=== PATIENT | female | born 1965 | race Caucasian/White ===

== ENCOUNTER 2022-11-28 04:36 | Emergency (ER) | payer SELFPAY ==
[2022-11-28] MEDS ORDERED: IBUPROFEN 400 MG TAB ONE (05:28)
[2022-11-28 06:14] LABS: Absolute Lymphocytes (CBC) 1.4 K/uL (0.7-4.9); Hematocrit 25.2 % (36.0-45.0); Lymphocytes % 10.3 % (15.3-44.8); MCV 84.3 fL (80-100); MPV 6.9 fL (7.6-11.3); Platelets 575 thou/uL (152-406); RBC Red Blood Cell Count 2.99 M/uL (3.86-4.86)
[2022-11-28] MEDS ORDERED: APIXABAN 5 MG TABLET ONE (06:21)
[2022-11-28 06:27] LABS: Protime INR 1.09
--- NOTE | 2022-11-28 06:27 | ER ---
Nurse's Notes [facility] Name: Rebeka Rogers Age: 56 yrs Sex: Female : 1965 Arrival Date: 11/28/2022 Time: 04:36 Bed 8 Private MD: Diagnosis: Phlebitis and thrombophlebitis of unspecified site Presentation: 11/28 04:43 Chief complaint: Patient states: right upper arm swelling, redness with pain of 5,onset pf1 Saturday. Patient stated was treated at [facility] with IV antibiotics for intestinal infection on Saturday, no issue with IV at that time. Patient stated is currently on Cefdinir and Flagyl for the infection. Patient stated took Lisinopril 5mg at 0400. 04:43 Coronavirus screen: Vaccine status: Patient reports receiving the 2nd dose of the covid pf1 vaccine. [facility] Client denies travel out of the [place] in the last 14 days. At this time, the client does not indicate any symptoms associated with coronavirus-19. Ebola Screen: Patient negative for fever greater than or equal to 101.5 degrees Fahrenheit, and additional compatible Ebola Virus Disease symptoms. Initial Sepsis Screen: Does the patient meet any 2 criteria? No. Patient's initial sepsis screen is negative. Does the patient have a suspected source of infection? No. Patient's initial sepsis screen is negative. Risk Assessment: Do you want to hurt yourself or someone else? Patient reports no desire to harm self or others. 04:43 Method Of Arrival: Ambulatory pf1 04:43 Acuity: DEEPTI 3 pf1 Triage Assessment: 05:00 General: Appears in no apparent distress. comfortable, Behavior is cooperative, bp appropriate for age, anxious. Pain: Complains of pain in right bicep. EENT: No deficits noted. Neuro: No deficits noted. Cardiovascular: No deficits noted. Musculoskeletal: Swelling present in right bicep. Historical: - Allergies: 05:04 No Known Allergies; pf1 - PMHx: 05:04 Hypertensive disorder; Seizure; blood transfusion; intestinal infection; RA; pf1 - PSHx: 05:04 section; pf1 - Immunization history:: Adult Immunizations up to date, Client reports receiving the 2nd dose of the Covid vaccine, Last tetanus immunization: < 10 years ago Flu vaccine is not up to date. - Social history:: Smoking status: Patient denies any tobacco usage or history of. Patient/guardian denies using alcohol, street drugs. - Family history:: not pertinent. Screenin:00 [facility] ED Fall Risk Assessment (Adult) History of falling in the last 3 months, bp including since admission No falls in past 3 months (0 pts). Abuse screen: Denies threats or abuse. Denies injuries from another. Nutritional screening: No deficits noted. Tuberculosis screening: No symptoms or risk factors identified. Assessment: 05:00 General: SEE TRIAGE NOTE. bp 05:41 Reassessment: PER INITIAL READ, PT +DVT ON RUE. bp Vital Signs: 04:43 BP 159 / 92; Pulse 87; Resp 16; Temp 98.7; Pulse Ox 99% on R/A; Weight 72.57 kg; Height pf1 5 ft. 5 in. ; Pain 5/10; 05:41 BP 159 / 92; Pulse 84; Resp 16; Pulse Ox 99% ; bp 06:47 BP 150 / 90; Pulse 91; Resp 16; Pulse Ox 99% ; bp 04:43 Body Mass Index 26.63 (72.57 kg, 165.1 cm) pf1 04:43 Pain Scale: Adult pf1 ED Course: 04:38 Patient arrived in ED. mr 04:49 Gabino Garcia, RN is Primary Nurse. bp 04:50 Eliel Bearden MD is Attending Physician. ashkan 05:00 Arm band placed on. bp 05:00 Patient has correct armband on for positive identification. Bed in low position. Call bp light in reach. Side rails up X2. Adult w/ patient. 05:03 Triage completed. pf1 05:41 UPPER EXTREMITY VENOUS UNILATE In Process Unspecified. EDMS 06:27 Agueda Ashton MD is Referral Physician. ashkan 06:27 Boby Boyle MD is Referral Physician. ashkan 06:48 No provider procedures requiring assistance completed. IV discontinued, intact, bp bleeding controlled, No redness/swelling at site. Pressure dressing applied. Administered Medications: 05:20 Drug: Ibuprofen PO 600 mg PO once Route: PO; bp 05:39 Follow up: Response: No adverse reaction bp 06:13 Drug: Eliquis PO 10 mg PO once Route: PO; rv 06:48 Follow up: Response: No adverse reaction bp Medication: 05:00 VIS not applicable for this client. bp Outcome: 06:27 Discharge ordered by . ashkan 06:48 Discharged to home ambulatory, with family, bp 06:48 Condition: stable 06:48 Discharge instructions given to patient, Instructed on discharge instructions, follow up and referral plans. medication usage, Demonstrated understanding of instructions, follow-up care, medications, Prescriptions given X 2, 06:48 Patient left the ED. bp Signatures: Dispatcher [employer] EDMS Eliel Bearden MD MD cha Rivera Mallorie, Reg Reg mr Gabino Garcia, RN RN bp Luis A Fournier RN RN Fifi Khan RN RN pf1 Corrections: (The following items were deleted from the chart) 05:14 05:04 PSHx: RA; pf1 pf1 06:47 05:41 BP 150 / 9; Pulse 84bpm; Resp 16bpm; Pulse Ox 99%; bp bp
--- NOTE | 2022-11-28 06:27 | EDPHYS ---
Physician Documentation [facility] Name: Rebeka Rogers Age: 56 yrs Sex: Female : 1965 Arrival Date: 11/28/2022 Time: 04:36 Bed 8 Private MD: ASHLEIGH Physician Eliel Bearden HPI: 11/28 05:59 This 56 yrs old Female presents to ER via Ambulatory with complaints of Arm ashkan swelling. 05:59 The patient or guardian complains of pain, that is acute. The complaints affect the ashkan right antecubital area. Context: resulted from iv infliltration. Onset: The symptoms/episode began/occurred 2 day(s) ago. Treatment prior to arrival includes: no previous treatment, elevation of the extremity. Modifying factors: The symptoms are alleviated by remaining still, the symptoms are aggravated by movement, bending arm. Associated signs and symptoms: The patient has no apparent associated signs or symptoms. Severity of symptoms: At their worst the symptoms were mild, moderate, in the emergency department the symptoms are unchanged. The patient has not experienced similar symptoms in the past. Historical: - Allergies: 05:04 No Known Allergies; pf1 - PMHx: 05:04 Hypertensive disorder; Seizure; blood transfusion; intestinal infection; RA; pf1 - PSHx: 05:04 section; pf1 - Immunization history:: Adult Immunizations up to date, Client reports receiving the 2nd dose of the Covid vaccine, Last tetanus immunization: < 10 years ago Flu vaccine is not up to date. - Social history:: Smoking status: Patient denies any tobacco usage or history of. Patient/guardian denies using alcohol, street drugs. - Family history:: not pertinent. ROS: 05:59 Constitutional: Negative for fever, chills, and weight loss, Eyes: Negative for injury, ashkan pain, redness, and discharge, ENT: Negative for injury, pain, and discharge, Neck: Negative for injury, pain, and swelling, Cardiovascular: Negative for chest pain, palpitations, and edema, Respiratory: Negative for shortness of breath, cough, wheezing, and pleuritic chest pain, Abdomen/GI: Negative for abdominal pain, nausea, vomiting, diarrhea, and constipation, Back: Negative for injury and pain, : Negative for injury, bleeding, discharge, and swelling, Skin: Negative for injury, rash, and discoloration, Neuro: Negative for headache, weakness, numbness, tingling, and seizure, Psych: Negative for depression, anxiety, suicide ideation, homicidal ideation, and hallucinations, Allergy/Immunology: Negative for hives, rash, and allergies, Endocrine: Negative for neck swelling, polydipsia, polyuria, polyphagia, and marked weight changes, Hematologic/Lymphatic: Negative for swollen nodes, abnormal bleeding, and unusual bruising, 05:59 MS/extremity: Positive for pain, swelling, of the right arm, Exam: 05:59 Constitutional: This is a well developed, well nourished patient who is awake, alert, ashkan and in no acute distress. Head/Face: Normocephalic, atraumatic. Eyes: Pupils equal round and reactive to light, extra-ocular motions intact. Lids and lashes normal. Conjunctiva and sclera are non-icteric and not injected. Cornea within normal limits. Periorbital areas with no swelling, redness, or edema. ENT: Nares patent. No nasal discharge, no septal abnormalities noted. Tympanic membranes are normal and external auditory canals are clear. Oropharynx with no redness, swelling, or masses, exudates, or evidence of obstruction, uvula midline. Mucous membranes moist. Neck: Trachea midline, no thyromegaly or masses palpated, and no cervical lymphadenopathy. Supple, full range of motion without nuchal rigidity, or vertebral point tenderness. No Meningismus. Chest/axilla: Normal chest wall appearance and motion. Nontender with no deformity. No lesions are appreciated. Cardiovascular: Regular rate and rhythm with a normal S1 and S2. No gallops, murmurs, or rubs. Normal PMI, no JVD. No pulse deficits. Respiratory: Lungs have equal breath sounds bilaterally, clear to auscultation and percussion. No rales, rhonchi or wheezes noted. No increased work of breathing, no retractions or nasal flaring. Abdomen/GI: Soft, non-tender, with normal bowel sounds. No distension or tympany. No guarding or rebound. No evidence of tenderness throughout. Back: No spinal tenderness. No costovertebral tenderness. Full range of motion. Female : Normal external genitalia. Skin: Warm, dry with normal turgor. Normal color with no rashes, no lesions, and no evidence of cellulitis. Neuro: Awake and alert, GCS 15, oriented to person, place, time, and situation. Cranial nerves II-XII grossly intact. Motor strength 5/5 in all extremities. Sensory grossly intact. Cerebellar exam normal. Normal gait. Psych: Awake, alert, with orientation to person, place and time. Behavior, mood, and affect are within normal limits. 05:59 Musculoskeletal/extremity: ROM: limited active range of motion, limited passive range of motion, Circulation is intact in all extremities. Sensation intact. Compartment Syndrome exam of affected extremity: is normal. DVT Exam: negative Homans' sign noted on exam, no appreciated bluish discoloration, pain, swelling, tenderness, erythema, increased warmth, Vital Signs: 04:43 BP 159 / 92; Pulse 87; Resp 16; Temp 98.7; Pulse Ox 99% on R/A; Weight 72.57 kg; Height pf1 5 ft. 5 in. ; Pain 5/10; 05:41 BP 159 / 92; Pulse 84; Resp 16; Pulse Ox 99% ; bp 06:47 BP 150 / 90; Pulse 91; Resp 16; Pulse Ox 99% ; bp 04:43 Body Mass Index 26.63 (72.57 kg, 165.1 cm) pf1 04:43 Pain Scale: Adult pf1 MDM: 04:50 Patient medically screened. [facility] 05:59 Differential diagnosis: contusion, abrasion, tendonitis. Data reviewed: vital signs, [facility] nurses notes, lab test result(s), radiologic studies, doppler. Consideration of Admission/Observation Escalation of care including admission/observation considered. I considered the following discharge prescriptions or medication management in the emergency department Medications were administered in the Emergency Department. See MAR. Independent interpretation of the following test(s) in the Emergency Department Radiology Department Ultrasound: My interpretation is basillic vein dvt. Test considered but Not performed: EKG: no ekg. Historians other than the Patient: Daughter/Son: son , present. Care significantly affected by the following chronic conditions: Hypertension, seizure, intestinal infection. 11/28 05:46 Order name: CBC with Diff; Complete Time: 06:24 [facility] 11/28 05:46 Order name: Comprehensive Metabolic Panel [facility] 11/28 05:46 Order name: PT-INR [facility] 11/28 05:46 Order name: Test, Serum; Complete Time: 06:24 [facility] 11/28 05:41 Order name: UPPER EXTREMITY VENOUS UNILATE [facility] 11/28 05:06 Order name: Misc. Order: moist warm; Complete Time: 05:38 [facility] 11/28 05:42 Order name: IV Saline Lock; Complete Time: 06:07 rv Administered Medications: 05:20 Drug: Ibuprofen PO 600 mg PO once Route: PO; bp 05:39 Follow up: Response: No adverse reaction bp 06:13 Drug: Eliquis PO 10 mg PO once Route: PO; rv 06:48 Follow up: Response: No adverse reaction bp Disposition Summary: 11/28/22 06:27 Discharge Ordered Notes: Location: Home ashkan Problem: new ashkan Symptoms: have improved ashkan Condition: Stable ashkan Diagnosis - Phlebitis and thrombophlebitis of unspecified site ashkan Followup: ashkan - With: Private Physician - When: 2 - 3 days - Reason: Recheck today's complaints, Continuance of care, Re-evaluation by your physician Followup: ashkan - With: Agueda Ashton MD - When: 2 - 3 days - Reason: Recheck today's complaints, Re-evaluation by your physician Followup: ashkan - With: Boby Boyle MD - When: 2 - 3 days - Reason: Recheck today's complaints, Re-evaluation by your physician Discharge Instructions: - Discharge Summary Sheet ashkan - Phlebitis ashkan - Phlebitis, Edfu-by-Jptr ashkan - Venous Thromboembolism Prevention ashkan - Thrombophlebitis [facility] Forms: - Medication Reconciliation Form [facility] - Thank You Letter [facility] - Antibiotic Education ashkan - Prescription Opioid Use ashkan - Patient Portal Instructions [facility] - Leadership Thank You Letter [facility] Prescriptions: - diclofenac sodium 50 mg Oral tablet, delayed release (enteric coated) - take 1 tablet ORAL route 3 times per day; 30 tablet; Refills: 0, Product [facility] Selection Permitted - Pepcid 20 mg Oral tablet - take 1 tablet ORAL route every 12 hours for 30 days; 60 tablet; Refills: 0, [facility] Product Selection Permitted Signatures: Dispatcher [employer] EDGA Eliel Bearden MD MD cha Peltier, Brian RN RN Luis A Up RN RN Fifi Khan RN RN pf1 Corrections: (The following items were deleted from the chart) 05:14 05:04 PSHx: RA; pf1 pf1 05:41 05:06 Extremity Venous Uni Ltd+US.RAD.BRZ ordered. EDMS EDMS 05:54 05:46 CBC+H.LAB.BRZ ordered. EDMS EDMS 05:54 05:46 PROTIME (+INR)+COAG.LAB.BRZ ordered. EDMS EDMS 06:11 05:43 CBC+H.LAB.BRZ ordered. EDMS EDMS 06:11 05:43 PROTIME (+INR)+COAG.LAB.BRZ ordered. EDMS EDMS 06:19 05:43 BASIC METABOLIC PANEL+C.LAB.BRZ ordered. EDMS EDMS
[2022-11-28 06:32] LABS: Albumin 2.6 g/dL (3.4-5.0); Bilirubin Total 0.2 mg/dL (0.2-1.0); Potassium 3.6 mEq/L (3.5-5.1); Protein, Total 6.7 g/dL (6.4-8.2)
[2022-11-28 06:53] VITALS: TEMP 98.7; O2SAT 99
[2022-11-28 06:56] VITALS: BP 150/90
--- NOTE | 2022-11-28 11:01 | RAD REPORT ---
EXAM DESCRIPTION: UPPER EXTREMITY VENOUS UNILATE US Right Upper Extremity Venous Duplex Doppler 11/28/2022 at 5: 19 AM CLINICAL HISTORY: Pain COMPARISON: None. TECHNIQUE: Grayscale, color Doppler, duplex Doppler, spectral Doppler images and analysis with compr ession and augmentation of right upper extremity veins. FINDINGS: Right basilic vein shows occlusive clot. Right internal jugular, subclavian, axillary, brachial, cephalic, radial, and ulnar veins unremarkabl e without evidence of clot. IMPRESSION: Right basilic superficial vein thrombosis. Electronically signed by: Ruddy Root MD 11/28/2022 5:56 AM CDT Due to temporary technical issues with the PACS/Fluency reporting system, reports are being signed by the in house radiologist without review as a courtesy to ensure prompt reporting. The interpreting r adiologist is fully responsible for the content of the report.
== END 2022-11-28 06:48 | disposition home or self-care (01) ==
LOC: ER 04:36
DX: I80.8 Phlebitis and thrombophlebitis of other sites (principal)
CPT/HCPCS: 36415; 80053; 84703; 85025; 85610; 93971